=== PATIENT | male | born 1990 | race Caucasian/White ===

== ENCOUNTER 2022-10-14 06:52 | Emergency (ER) | payer MEDICAID ==
[2022-10-14] MEDS ORDERED: LORazepam 2 MG/ML SDV IVPUSH ONE (07:01)
[2022-10-14] MEDS ORDERED: Sodium Chloride 0.9% 10 ML Syringe FLUSH PRN (07:01)
[2022-10-14] MEDS ORDERED: Ondansetron 4 MG/2 ML SDV IVPUSH ONE (07:02)
[2022-10-14] MEDS: Sodium Chloride 0.9% 1,000 ML IV SCH ×2 (07:20→07:25)
[2022-10-14 07:31] LABS: BLOOD UREA NITROGEN,BUN 10 mg/dL (7-18); BUN/CREATININE RATIO 12.5 (9-20); CALCIUM 9.3 mg/dL (8.6-10.2); CARBON DIOXIDE,CO2 26 mmol/L (21-32); CHLORIDE,CL 104 mmol/L (100-110); CREATININE 0.8 mg/dL (0.70-1.30); EST CRCL DRUG DOSING (CG) 138.57 mL/min; ESTIMATED GFR 119 mL/min (>60); GLUCOSE RANDOM 107 mg/dL (80-116); POTASSIUM,K 3.9 mmol/L (3.5-5.3); SODIUM,NA 143 mmol/L (135-145)
[2022-10-14 07:33] LABS: BASOPHILS PERCENT AUTO 0.4 % (0.3-3.8); EOSINOPHILS ABSOLUTE AUTO 0.1 x10-3/uL (0.0-0.6); EOSINOPHILS PERCENT AUTO 0.7 % (0.1-6.8); HEMATOCRIT 49.2 % (38.3-50.1); HEMOGLOBIN 16.8 g/dL (12.9-17.7); LYMPHOCYTES ABSOLUTE AUTO 1.5 x10-3/uL (0.5-4.5); LYMPHOCYTES PERCENT AUTO 14.3 % (15.8-45.3); MEAN CORPUSCULAR HEMOGLOBIN 30.9 pg (27.0-33.3); MEAN CORPUSCULAR HGB CONC 34.2 g/dL (28.7-35.3); MEAN CORPUSCULAR VOLUME 90.5 fL (80.8-98.7); MEAN PLATELET VOLUME 9.5 fL (6.7-11.0); MONOCYTES ABSOLUTE AUTO 0.8 x10-3/uL (0.0-1.2); MONOCYTES PERCENT AUTO 7.9 % (5.5-15.2); NEUTROPHILS ABSOLUTE AUTO 7.9 x10-3/uL (1.7-6.9); NEUTROPHILS PERCENT AUTO 76.7 % (40.3-71.8); PLATELET COUNT,PLT 195 x10(3)uL (117-477); RED BLOOD CELL COUNT 5.43 x10(6)uL (3.90-5.90); RED CELL DISTRIBUTION WIDTH 12.4 % (12.4-15.0); WHITE BLOOD CELL COUNT,WBC 10.3 x10-3/uL (3.2-10.1)
[2022-10-14 07:39] LABS: A/G RATIO 1.2; ALANINE AMINOTRANSFERASE,ALT 94 U/L (12-36); ALBUMIN 4.3 g/dL (3.5-5.2); ALKALINE PHOSPHATASE 95 IU/L (56-112); AMYLASE 71 U/L (25-115); ASPARTATE AMNIOTRANSFERASE,AST 56 IU/L (5-25); BILIRUBIN TOTAL 0.2 mg/dL (0.1-1.3); MAGNESIUM 1.8 mg/dL (1.8-2.5); PHOSPHORUS 3.9 mg/dL (2.6-4.6)
[2022-10-14] MEDS ORDERED: Thiamine 200 MG/2 ML MDV IVPUSH ONE (08:17)
[2022-10-14] MEDS ORDERED: Sodium Chloride 0.9% 1,000 ML IV SCH (08:30)
[2022-10-14 11:22] LABS: AMPHETAMINES SCREEN, URINE NEGATIVE (NEGATIVE); BARBITURATE SCREEN,URINE NEGATIVE (NEGATIVE); BENZODIAZEPINES SCREEN,URINE POSITIVE (NEGATIVE); METHADONE SCREEN, URINE NEGATIVE (NEGATIVE); METHAMPHETAMINE SCREEN, URINE NEGATIVE (NEGATIVE); OXYCODONE SCREEN,URINE NEGATIVE (NEGATIVE); PROPOXYPHENE SCREEN,URINE NEGATIVE (NEGATIVE); THC SCREEN,URINE NEGATIVE (NEGATIVE)
[2022-10-14 11:23] LABS: BUPRENORPHINE SCREEN,URINE NEGATIVE (NEGATIVE)
[2022-10-14] MEDS ORDERED: LORazepam 2 MG/ML SDV IVPUSH PRN (17:34)
[2022-10-15] MEDS ORDERED: LORazepam 2 MG/ML SDV IVPUSH ONE (10:44)
[2022-10-15] MEDS ORDERED: LORazepam 1 MG Tab PO ONE (10:51)
== END 2022-10-15 11:06 ==
LOC: FB.ED 06:52
DX: K70.9 Alcoholic liver disease, unspecified (principal); F10.239 Alcohol dependence with withdrawal, unspecified; F19.10 Other psychoactive substance abuse, uncomplicated; Z88.0 Allergy status to penicillin; Y90.6 Blood alcohol level of 120-199 mg/100 ml
CPT/HCPCS: 36415; 80053; 80307; 82150; 83690; 83735; 84100; 85025; 96361; 96374; 96375; 96376; 99285-25; A9270-GY; J2060; J2405; J3411; J3490; J7030

== ENCOUNTER 2022-11-06 16:56 | Emergency (ER) | payer MEDICAID ==
[2022-11-06] MEDS ORDERED: Sodium Chloride 0.9% 10 ML Syringe FLUSH PRN (17:04)
[2022-11-06 17:14] LABS: BASOPHILS ABSOLUTE AUTO 0.1 x10-3/uL (0.0-0.3); BASOPHILS PERCENT AUTO 0.5 % (0.3-3.8); EOSINOPHILS ABSOLUTE AUTO 0.1 x10-3/uL (0.0-0.6); EOSINOPHILS PERCENT AUTO 0.4 % (0.1-6.8); HEMATOCRIT 46.7 % (38.3-50.1); HEMOGLOBIN 16.1 g/dL (12.9-17.7); LYMPHOCYTES ABSOLUTE AUTO 2.3 x10-3/uL (0.5-4.5); LYMPHOCYTES PERCENT AUTO 16.5 % (15.8-45.3); MEAN CORPUSCULAR HEMOGLOBIN 30.7 pg (27.0-33.3); MEAN CORPUSCULAR HGB CONC 34.4 g/dL (28.7-35.3); MEAN CORPUSCULAR VOLUME 89.3 fL (80.8-98.7); MEAN PLATELET VOLUME 8.7 fL (6.7-11.0); MONOCYTES PERCENT AUTO 7.3 % (5.5-15.2); NEUTROPHILS ABSOLUTE AUTO 10.5 x10-3/uL (1.7-6.9); NEUTROPHILS PERCENT AUTO 75.3 % (40.3-71.8); PLATELET COUNT,PLT 280 x10(3)uL (117-477); RED BLOOD CELL COUNT 5.23 x10(6)uL (3.90-5.90); RED CELL DISTRIBUTION WIDTH 12.4 % (12.4-15.0); WHITE BLOOD CELL COUNT,WBC 13.9 x10-3/uL (3.2-10.1)
[2022-11-06] MEDS ORDERED: Sodium Chloride 0.9% 1,000 ML IV SCH (17:15)
[2022-11-06 17:21] LABS: BLOOD UREA NITROGEN,BUN 9 mg/dL (7-18); CALCIUM 8.7 mg/dL (8.6-10.2); CARBON DIOXIDE,CO2 26 mmol/L (21-32); CHLORIDE,CL 102 mmol/L (100-110); CREATININE 0.9 mg/dL (0.70-1.30); ESTIMATED GFR 115 mL/min (>60); GLUCOSE RANDOM 119 mg/dL (80-116); POTASSIUM,K 3.5 mmol/L (3.5-5.3); SODIUM,NA 138 mmol/L (135-145)
[2022-11-06 17:27] LABS: A/G RATIO 1.2; ALANINE AMINOTRANSFERASE,ALT 16 U/L (12-36); ALBUMIN 4.1 g/dL (3.5-5.2); ALKALINE PHOSPHATASE 101 IU/L (56-112); ASPARTATE AMNIOTRANSFERASE,AST 17 IU/L (5-25); BILIRUBIN TOTAL 0.2 mg/dL (0.1-1.3); PROTEIN TOTAL,TP 7.5 g/dL (6.0-8.0)
[2022-11-06] MEDS ORDERED: fentaNYL 100 MCG/2 ML SDV IVPUSH STA (17:33)
[2022-11-06] MEDS ORDERED: fentaNYL 100 MCG/2 ML SDV ONE (17:35)
[2022-11-06 17:49] LABS: INR 0.99 (1.00-1.24); PROTHROMBIN TIME 10.2 sec (9.0-11.1); PTT,PARTIAL THROMBOPLSTIN TIME 23.7 SECONDS (24.4-33.2)
== END 2022-11-06 18:25 ==
LOC: FB.ED 16:56
DX: S21.131A Puncture wound without foreign body of right front wall of thorax without penetration into thoracic cavity, initial encounter (principal); F10.229 Alcohol dependence with intoxication, unspecified; Z88.0 Allergy status to penicillin; W34.00XA Accidental discharge from unspecified firearms or gun, initial encounter
CPT/HCPCS: 32551; 36415; 71045; 80053; 80307; 85025; 85610; 85730; 96361; 96374; 99284; 99285-25; J3010; J3490; J7030